=== PATIENT | female | born 1970 | race Hispanic/Latino ===

== ENCOUNTER 2020-04-06 18:23 | Emergency (ER) | payer SELFPAY ==
[2020-04-06] MEDS ORDERED: Lorazepam 2 MG/ML VIAL ONE (18:52)
[2020-04-06] MEDS ORDERED: Acetaminophen 500 MG TAB ONE (20:38)
== END 2020-04-06 21:04 | disposition home or self-care (01) ==
LOC: ERS 18:23
DX: F41.9 Anxiety disorder, unspecified (principal); Z76.0 Encounter for issue of repeat prescription; I10 Essential (primary) hypertension; G43.909 Migraine, unspecified, not intractable, without status migrainosus
CPT/HCPCS: 96372; 99283; J2060